=== PATIENT | female | born 1970 | race Caucasian/White ===

== ENCOUNTER 2024-08-29 08:54 | Emergency (ER) | payer MEDICARE, MEDICAID, SELFPAY ==
[2024-08-29 08:56] VITALS: BMI 17.4
[2024-08-29 09:06] VITALS: BP 100/63; PULSE 87; RESP 20; TEMP 36.6; O2SAT 97; BMI 27.1
--- NOTE | 2024-08-29 09:13 | XR_ITS ---
Examination: AP lateral chest 2 views TECHNIQUE: Upright AP lateral chest 2 views Exam date and time: August 29, 2024 0931 hours INDICATIONS: Shortness of breath today. FINDINGS: Normal heart size Lungs are clear. The osseous structures are intact IMPRESSION: No active disease
--- NOTE | 2024-08-29 09:13 | PD.EDRME ---
Rapid Medical Screening Exam RME Arrival date/time: 08/29/24 08:54 54-year-old female with Down syndrome presents to the emergency department today with family member who reports the patient has had changes in her breathing ongoing for the last few months Chief Complaint: General Adult/Misc Complain Time Seen by Provider: 08/29/24 08:58 Vital signs: Vital Signs Temperature 97.9 F 08/29/24 09:06 Pulse Rate 87 08/29/24 09:06 Respiratory Rate 20 08/29/24 09:06 Blood Pressure 100/63 08/29/24 09:06 Pulse Oximetry (%) 97 08/29/24 09:06 Oxygen Delivery Method Room Air 08/29/24 09:06
[2024-08-29 10:08] LABS: Basophils # (Auto) 0.1 Thou/mm3 (0.0-0.2); Basophils % (Auto) 1 % (0-2.5); Eosinophils # (Auto) 0.1 Thou/mm3 (0.0-0.5); Eosinophils % (Auto) 2 % (0-10); Hematocrit 41.7 % (36.0-46.0); Immature Granulocytes % (Auto) 0 % (0-0); Immature Granulocytes Auto 0.01 Thou/mm3 (0.00-0.00); Lymphocytes # (Auto) 1.2 Thou/mm3 (1.0-4.8); Lymphocytes % (Auto) 24 % (10-50); Mean Corpuscular HGB Conc 33.6 g/dl (31.0-37.0); Mean Corpuscular Volume 98 fL (80-100); Monocytes # (Auto) 0.6 Thou/mm3 (0.0-0.8); Monocytes % (Auto) 11 % (0-12); Neutrophils # (Auto) 3.2 Thou/mm3 (1.8-7.7); Neutrophils % (Auto) 62 % (37-80); Nucleated Red Blood Cell % 0 /100 WBC (0); Platelet Count 211 Thou/mm3 (140-440); RDW Standard Deviation 49.4 fL (36.4-46.3); Red Blood Count 4.24 Miln/mm3 (4.00-5.20); White Blood Count 5.2 Thou/mm3 (3.6-11.0)
[2024-08-29 10:35] LABS: Alanine Aminotransferase 13 U/L (10-49); Albumin, Serum 4.1 gm/dL (3.5-5.0); Albumin/Globulin Ratio 1.2 (1.2-2.2); Alkaline Phosphatase 71 U/L (46-116); Anion Gap 8 (7-16); Aspartate Amino Transferase 26 U/L (0-34); BUN/Creatinine Ratio 13 Ratio (12-20); Bilirubin,Total 0.7 mg/dL (0.3-1.2); Blood Urea Nitrogen 12 mg/dL (9-23); Calcium 9.5 mg/dL (8.3-10.6); Calcium (Corrected) 9.5 mg/dL (8.5-10.1); Carbon Dioxide 28.2 mMol/L (20.0-31.0); Chloride 104 mMol/L (98-107); Creatinine (Component) 0.9 mg/dL (0.6-1.3); Estimated Creatinine Clearance 43.5 mL/min (>60); Globulin 3.4 gm/dL (2.3-3.5); Glucose 77 mg/dL (74-106); Lipase 31 U/L (12-53); Osmolality,Calculated 278 (275-295); Potassium 4.6 mMol/L (3.4-5.1); Sodium 140 mMol/L (136-145); Total Protein 7.5 gm/dL (5.7-8.2); Troponin I < 0.002 ng/mL (0.0-0.045); eGFR > 60 See Note
[2024-08-29 14:30] VITALS: BP 129/70; PULSE 64; RESP 18; TEMP 36.7; O2SAT 100
--- NOTE | 2024-08-29 15:36 | EDNOTE_ITS ---
ED General RME/HPI General Chief complaint: General Adult/Misc Complain Stated complaint: 4 months breathing different Time Seen by Provider: 08/29/24 08:58 Arrival date/time: 08/29/24 08:54 RME / HPI RME / HPI narrative: 08/29/24 08:54 54-year-old female with Down syndrome presents to the emergency department today with family member who reports the patient has had changes in her breathing ongoing for the last few months DR. MATA MAIN ED EVALUATION: 54 year old female with past medical history significant for Down syndrome presents to the Emergency Department with complaint of breathing weird this morning; per sister who is rn first assist, the patient has been having breathing changes in the last couple of months. Patient denies any nausea, vomiting, diarrhea, fevers, chills, blood in stools, or any other symptoms at this time. Related Data Allergies Allergy/AdvReac Type Severity Reaction Status Date / Time No Known Allergies Allergy Verified 08/29/24 09:00 Review of Systems Review of Systems ROS Unobtainable: unobtainable due to medical condition (Down syndrome) Past Medical History Past Medical History CARDIAC: Negative Congestive Heart Failure RESPIRATORY: Negative Chronic Obstructive Pulmonary Disease (COPD) GENITOURINARY: Negative Renal Disease ENDOCRINE: Negative Diabetes Mellitus Type 1 or Diabetes Mellitus Type 2 Social History SMOKING STATUS: Never smoker SUBSTANCE USE: does not use ALCOHOL: Never ED Exam Narrative Physical exam: Physical Exam: General: The vital signs were reviewed. Down's facies smiling giggling the patient is non-toxic, in no apparent distress and appears healthy with a patent airway, no respiratory distress and has no apparent circulatory problems. O2 sat reportedly 100% on room air the patient is constantly pulling on the O2 sat thing on her finger and does not want it on. She is minimally verbal which is baseline. Head & Scalp: Normocephalic, atraumatic. Face: Appears normal and is without lesions, deformity. Ears: Left external pinna appears normal. Right external pinna appears normal. Eyes: The sclera is anicteric. No obvious photophobia. The Left and Right Orbit/Lid/Conjunctiva appears normal without swelling, discoloration or injection. Nose: The nose is without deformity, discharge or tenderness; Throat: Appears normal. The mucous membranes are pink and moist without exudates, redness or mass seen. The tongue appears normal. Neck: The neck is supple and no apparent mass or adenopathy. Chest: The chest wall is normal in size and symmetry and has no chest wall tenderness or crepitus. The patient displays normal ventilator effort without retractions, accessory muscle use and has adequate air movement bilaterally with no wheezes and no rales. Cardiovascular: Regular rate and rhythm; No murmurs, rubs, or gallops; Gastrointestinal: The abdomen appears normal. No obvious hernias or mass. The abdomen is soft and benign, non-distended, with no pain, no guarding and no rebound tenderness. Bowel sounds are present and normal sounding. No CVA tenderness. Genitourinary: Back/Spine: Normal inspection. Extremities/Musculoskeletal/lymphatic: The bilateral upper and lower extremities are warm. There is no evidence of arterial insufficiency. There is no evidence of venous insufficiency/edema. The patient spontaneously moves bilateral upper and lower extremities with no pain and no limitation of movement. There is no apparent, injury or trauma. Skin: The skin is warm, dry and intact. No rashes. No petechia. No purpura. No abnormal bruising. The color is appropriate with no cyanosis. Mental status/Psychiatric: Mental status is appropriate down this patient. Minimally verbal. Neurological: The patient is awake, alert, interactive, cordial, cooperative and is acting her usual self minimally verbal but smiles giggles gives good eye contact Moving all her extremities. No distress. Sits up and stands without any difficulty. Course Quality Measures none Orders Category Date Time Status XR chest 2V Stat Exams 08/29/24 09:13 Completed CBC Stat Lab 08/29/24 09:51 Completed Comprehensive Metabolic Panel Stat Lab 08/29/24 09:51 Completed HCG Qualitative,Urine Stat Lab 08/29/24 09:13 Ordered Lipase Stat Lab 08/29/24 09:51 Completed Troponin I Stat Lab 08/29/24 09:51 Completed UA, C/S IF [Urinalysis, C/S if Indicated] Stat Lab 08/29/24 09:13 Ordered Vital Signs Vital signs: Vital Signs Temperature 97.9 F 08/29/24 09:06 Pulse Rate 87 08/29/24 09:06 Respiratory Rate 20 08/29/24 09:06 Blood Pressure 100/63 08/29/24 09:06 Pulse Oximetry (%) 97 08/29/24 09:06 Oxygen Delivery Method Room Air 08/29/24 09:06 [facility] Patient data External records reviewed:: [facility] previous records (Reviewed last ED visit dated 09/13/19, discharged with the following: Rash) Clinical information provided by:: family (sister who is the rn first assist) Social determinants that could affect healthcare access:: none Patient has the following chronic illnesses:: Down syndrome How is presenting disease/condition affected by chronic disease/condition?: u neffected by Evaluation data The following diagnostics were reviewed and interpreted by me:: lab results, radiology exam(s) and EKG tracing(s) Lab and/or radiology exams considered but not ordered:: none Interpretation Summary: See above under MDM narrative. RADIOLOGY Procedure(s): XR chest 2V Accession Number(s): [id number] cc: Bong (TEST BAKER),Cody ROE; Sd Ziegler MD; NO PRIMARY/FAMILY,PHYSICIAN~ Examination: AP lateral chest 2 views TECHNIQUE: Upright AP lateral chest 2 views Exam date and time: August 29, 2024 0931 hours INDICATIONS: Shortness of breath today. FINDINGS: Normal heart size Lungs are clear. The osseous structures are intact IMPRESSION: No active disease Dictated By: Sd Ziegler MD Medications Medications considered but not ordered:: none Medication administrations:: see above if any Consultations Consultation(s) initiated? (list below): No Diagnosis Differential Diagnosis ED Complaint MDM: congenital heart disease, pneumonia, Down syndrome Most likely diagnosis given after review of the tests above:: Down syndrome Respiratory concerns Constipation Admission Indicated Admission indicated?: not indicated Explain why admission is indicated or not indicated:: Patient has no emergent abnormalities on his studies and can be managed on an outpatient basis. Admission Request Was there a request for admission?: No Disposition Plan Disposition Plan: Discharge Discharge Attestation Discharge Attestation: The patient and all family members were given an opportunity to ask questions and understood the discharge instructions. Discharge instructions specifically effects, indications for sooner follow up or return to the emergency department, and the expected course of current diagnosis. Patient condition: Stable Medical Decision Making MDM Narrative MDM Narrative: I, Ling Daniels, am scribing for and in the presence of Dr. Mata. Patient is brought in by her sister who cares for this down adult patient. Patient makes some noises intermittently that she does not know what to do with and worries that there could be something serious going on. But objectively there is no cough her O2 sat is normal her lungs are clear her chest x-ray is clear her labs are unremarkable. Patient is nonstop playful interactive and appears to have no consistent presentation of any illness. After reviewing the labs x-rays and talking with the sister and the clinical exam I see no reason to assume there is any acute illness here and the fact that she sometimes grunts and makes noises seems to be more of a behavioral issue. We discussed things to watch for and when to return with the sister. She took reassurance well. All she is currently about constipation issues and she is got her on sounds like Dulcolax suppositories and but also is going to increase fruits and vegetables in her diet. She can follow-up with her regular doctor knows return if getting worse in any way. Differential Diagnosis Differential Diagnosis: congenital heart disease, pneumonia, Down syndrome Lab Data 08/29/24 09:51 08/29/24 09:51 Labs: Lab Results 08/29/24 Range/Units 09:51 WBC 5.2 (3.6-11.0) Thou/mm3 RBC 4.24 (4.00-5.20) Miln/mm3 Hgb 14.0 (12.0-16.0) g/dL Hct 41.7 (36.0-46.0) % MCV 98 (80-100) fL MCH 33.0 (25.0-35.0) pg MCHC 33.6 (31.0-37.0) g/dl RDW Std Deviation 49.4 H (36.4-46.3) fL Plt Count 211 (140-440) Thou/mm3 Neut % (Auto) 62 (37-80) % Lymph % (Auto) 24 (10-50) % [place] % (Auto) 11 (0-12) % Eos % (Auto) 2 (0-10) % Baso % (Auto) 1 (0-2.5) % Neut # (Auto) 3.2 (1.8-7.7) Thou/mm3 Lymph # (Auto) 1.2 (1.0-4.8) Thou/mm3 [place] # (Auto) 0.6 (0.0-0.8) Thou/mm3 Eos # (Auto) 0.1 (0.0-0.5) Thou/mm3 Baso # (Auto) 0.1 (0.0-0.2) Thou/mm3 Immature Gran # (Auto) 0.01 H (0.00-0.00) Thou/mm3 Absolute Nucleated RBC 0.00 (0.00-0.00) Thou/mm3 Immature Gran % 0 (0-0) % Nucleated RBC % 0 (0) /100 WBC Sodium 140 (136-145) mMol/L Potassium 4.6 (3.4-5.1) mMol/L Chloride 104 (98-107) mMol/L Carbon Dioxide 28.2 (20.0-31.0) mMol/L Anion Gap 8 (7-16) BUN 12 (9-23) mg/dL Creatinine 0.9 (0.6-1.3) mg/dL Estim Creat Clear Calc 43.5 L (>60) mL/min eGFR > 60 (60 - ) See Note BUN/Creatinine Ratio 13 (12-20) Ratio Glucose 77 (74-106) mg/dL Calculated Osmolality 278 (275-295) Calcium 9.5 (8.3-10.6) mg/dL Corrected Calcium 9.5 (8.5-10.1) mg/dL Total Bilirubin 0.7 (0.3-1.2) mg/dL AST 26 (0-34) U/L ALT 13 (10-49) U/L Alkaline Phosphatase 71 (46-116) U/L Troponin I < 0.002 (0.0-0.045) ng/mL Total Protein 7.5 (5.7-8.2) gm/dL Albumin 4.1 (3.5-5.0) gm/dL Globulin 3.4 (2.3-3.5) gm/dL Albumin/Globulin Ratio 1.2 (1.2-2.2) Lipase 31 (12-53) U/L Discharge Plan Plan Patient Disposition: HOME (Self Care) Prescriptions/Referrals Referrals: No Primary/Family,Physician [Primary Care Provider] - In 1 week Problem List Clinical Impression: Down syndrome, Concern about respiratory disease without diagnosis, Constipation Patient/Caregiver Discharge Instructions Additional Instructions: As we discussed that if the patient has persistent respiratory distress or labored breathing please return for reevaluation. Your chest x-ray was normal. Your O2 sats were normal today. Your laboratories show normal white count and hemoglobin's. Your electrolytes and your cardiac enzyme was normal. Continue the bowel program as we discussed and have your doctor follow-up in the next 2 to 3 days. Return if worse or any other concerns. Print Language: Bahamian Stand Alone Forms: [employer]i Award Info., Patient Portal Info Letter
[2024-08-29 16:09] LABS: Collection Type, Urine Clean Catch; Squamous Epithelial Cell,Urine 0 /hpf (0-5)
[2024-08-29 16:14] LABS: Bilirubin,Urine Negative (Negative); Blood,Urine Negative (Negative); Clarity,Urine Clear (Clear/Hazy); Color,Urine Colorless (Lt Yel-Yel); Culture Indicated,Urine Not Indicated; Glucose, Urine Negative (Negative); Ketones,Urine Negative (Negative); Leukocyte Esterase,Urine Negative (Negative); Nitrite,Urine Negative (Negative); PH,Urine 6.5 (5.0-7.0); Protein,Urine Negative (Neg - Trace); RBC,Urine 2 /hpf (0-3); Specific Gravity,Urine 1.004 (1.001-1.035); Urobilinogen,Urine Negative mg/dL (0.0-1.0); WBC,Urine 1 /hpf (0-5)
[2024-08-29 16:19] LABS: HCG Qualitative,Urine Negative
== END 2024-08-29 16:21 | disposition home or self-care (01) ==
PROVIDERS: Nurse Practitioner Primary Care; Emergency Provider Emergency Medicine
DX: R06.02 Shortness of breath (principal); K59.00 Constipation, unspecified; Q90.9 Down syndrome, unspecified
CPT/HCPCS: 36415; 71046; 80053; 81001; 81025; 83690; 84484; 85025; 99283

== ENCOUNTER 2024-10-27 21:47 | Emergency (ER) | payer MEDICARE, MEDICAID, SELFPAY ==
[2024-10-27 21:49] VITALS: BMI 17.2
[2024-10-27 22:40] VITALS: TEMP 37.8
--- NOTE | 2024-10-27 22:41 | PC.NURSE ---
PT is mentally delayed and is not cooperating for vitals. Tried multiple times.
[2024-10-27 23:40] VITALS: BP 137/81; PULSE 102; RESP 20; O2SAT 98
--- NOTE | 2024-10-27 23:44 | EDNOTE_ITS ---
ED General RME/HPI General Chief complaint: General Adult/Misc Complain Stated complaint: SHAKING REALLY BAD Time Seen by Provider: 10/27/24 22:00 Arrival date/time: 10/27/24 21:47 RME / HPI RME / HPI narrative: This section includes all my notes and documentations, including HPI, PE, and ED course. Messi Rowe MD HPI: 54yo female with a history of down syndrome BIB her sister presents to the ED for a chief complaint of shakiness. Patient's sister states the patient started shaking really bad at 2130, about an hour ago. Sister reports about a week history of worsening cough, productive cough, purulent sputum, and dyspnea. No obvious fever. No vomiting. Eating normally. No other complaints. ROS: All negative except as documented in HPI. Physical Exam: General: Alert and oriented. Coughing noted. Fever noted. Eyes: Conjunctivae and lids clear. ENT: No nasal congestion. Pharynx normal. TM normal bilaterally. Neck: Supple. Heart: RRR. Lungs: No respiratory distress. Mildly decreased air movement. Bilateral rhonchi noted. Abdomen: Soft and nontender. Normal bowel sounds. No distension. No rebound or guarding. Back: No CVA tenderness. Skin: Warm and dry. Neuro: Alert and oriented X 3. I reviewed all diagnostic test results. My interpretation of the chest x-ray is increased bronchial markings, official radiology report is pending. UA unremarkable. COVID/influenza/RSV/strep negative. At this point, diagnoses include lower respiratory infection. Treatment here included azithromycin and ibuprofen. Fever resolved. Recommended outpatient treatment. Based on my best medical judgment, made decision no further evaluation or treatment indicated at this time. Sister understands and agrees to the discharge instructions customized and printed, see below. Discharge instructions from Dr. Rowe: --No physical exertion for 3 days to help rest the lungs. ?No smoking or exposure to smoking or pets or dust or cold or humidity. --Zithromax and cefdinir to kill the germs causing the bronchitis. --Tylenol 650 mg alternating with ibuprofen 400 mg every 4 hours today and tomorrow scheduled. Then as needed for fever/pain. --Increase oral fluid, we need extra when we are sick. For good hydration, increase oral fluid and maintain clear urine. If dark or yellow, increase oral fluid. --See a private doctor next week for recheck if not better. --Seek immediate medical care with worsening or with any concerns. Messi Rowe MD Related Data Previous Rx's ?Medication ?Instructions ?Recorded azithromycin 200 mg/5 mL oral 400 mg (10 mL) PO QDAY 3 days #30 10/28/24 suspension (Zithromax) mL cefdinir 250 mg/5 mL oral 250 mg (5 mL) PO BID 3 days #30 mL 10/28/24 suspension Allergies Allergy/AdvReac Type Severity Reaction Status Date / Time No Known Allergies Allergy Verified 08/29/24 09:00 Review of Systems Review of Systems Systems Reviewed: All systems reviewed, normal except as documented ED Exam Narrative Physical exam: As noted in HPI. Course Quality Measures none Orders Category Date Time Status Bedside COVID-19 Antigen Test NOW Care 10/27/24 22:43 Completed Bedside Influenza A&B Antigen Test NOW Care 10/27/24 22:43 Completed XR chest 1V portable Stat Exams 10/27/24 23:55 Taken RSV [Respiratory Syncytial Virus Ag] Stat Lab 10/28/24 00:12 Completed Strep A Rapid Stat Lab 10/28/24 00:12 Completed UA, C/S IF [Urinalysis, C/S if Indicated] Stat Lab 10/28/24 00:45 Completed Azithromycin [Zithromax] Med 10/28/24 02:00 Discontinued 400 mg PO X1 ONE Ibuprofen Susp [Motrin Susp] Med 10/27/24 23:54 Discontinued 400 mg PO X1 ONE Vital Signs Vital signs: Vital Signs Temperature 100.1 F 10/27/24 22:40 Discharge Plan Plan Patient Disposition: HOME (Self Care) Prescriptions/Referrals Prescriptions/Med Rec: New cefdinir 250 mg/5 mL suspension for reconstitution 250 mg PO BID 3 Days Qty: 30 0RF azithromycin [Zithromax] 200 mg/5 mL suspension for reconstitution 400 mg PO QDAY 3 Days Qty: 30 0RF Referrals: No Primary/Family,Physician [Primary Care Provider] - In 1 week Problem List Clinical Impression: Lower respiratory infection Patient/Caregiver Discharge Instructions Discharge Activity: activity as tolerated Education Materials: ED Bronchitis, Antibiotics (Child) Additional Instructions: Discharge instructions from Dr. Rowe: --No physical exertion for 3 days to help rest the lungs. ?No smoking or exposure to smoking or pets or dust or cold or humidity. --Zithromax and cefdinir to kill the germs causing the bronchitis. --Tylenol 650 mg alternating with ibuprofen 400 mg every 4 hours today and tomorrow scheduled. Then as needed for fever/pain. --Increase oral fluid, we need extra when we are sick. For good hydration, increase oral fluid and maintain clear urine. If dark or yellow, increase oral fluid. --See a private doctor next week for recheck if not better. --Seek immediate medical care with worsening or with any concerns. Print Language: Frisian Stand Alone Forms: [employer] Award Info., Patient Portal Info Letter MDM Patient Acuity Low Acuity (complete MDM as needed) Narrative: Scribe Attestation: 10/27/24 - Sukh, Lori Paez am scribing for and in the presence of Dr. Rowe. 54yo female with a history of down syndrome BIB her sister presents to the ED for a chief complaint of shakiness. Patient's sister states the patient started shaking really bad at 2130, about an hour ago. Sister reports about a week history of worsening cough, productive cough, purulent sputum, and dyspnea. No obvious fever. No vomiting. Eating normally. No other complaints. Clinical Information Provided by: family (patient's sister) Medical Records reviewed [facility] (Per chart review, patient has no relevant previous ED visits.) Meds/Rx considered, not ordered None Labs/Rad/Tests considered, not ordered None Chronic Illness/Social Conditions which may negatively complicate care or outcome(s)-explain: Developmentally delayed EKG EKG not done Labs Labs: Interpreted by [facility] Lab(s) Interpretation(s): I reviewed all diagnostic test results. My interpretation of the chest x-ray is increased bronchial markings, official radiology report is pending. UA unremarkable. COVID/influenza/RSV/strep negative. Imaging Imaging interpretation: Interpreted by [facility] Interpretation(s): I reviewed all diagnostic test results. My interpretation of the chest x-ray is increased bronchial markings, official radiology report is pending. UA unremarkable. COVID/influenza/RSV/strep negative. Medication Administration(s) Medication Administration History Discontinued Medications Azithromycin (Azithromycin Susp 200 Mg/5 Ml) 400 mg PO X1 ONE Stop: 10/28/24 02:01 Last Admin: 10/28/24 02:14 Dose: 400 mg Documented By: MALIKA Ibuprofen (Ibuprofen Susp 100 Mg/5 Ml Udc) 400 mg PO X1 ONE Stop: 10/27/24 23:55 Last Admin: 10/28/24 00:14 Dose: 400 mg Documented By: MALIKA Azithromycin, Ibuprofen Diagnosis Differential Diagnosis ED Complaint MDM: COVID, influenza, RSV, strep, bronchitis, pneumonia, UTI
--- NOTE | 2024-10-27 23:55 | XR_ITS ---
Examination: AP chest single view Technique one AP portable upright chest single view Exam date and time: October 28, 2024 0008 hrs. Indications: Fever today. Findings: Early bilateral perihilar right basilar pneumonia Normal heart size Impression: Early right perihilar right basilar pneumonia
[2024-10-28] MEDS: IBUPROFEN SUSP 100 MG/5 ML UDC 400 MG PO (00:14)
[2024-10-28 00:59] LABS: Strep A Rapid Negative (Negative)
[2024-10-28 01:08] LABS: Respiratory Syncytial Virus Ag Negative (Negative)
[2024-10-28 01:32] LABS: Collection Type, Urine Clean Catch
[2024-10-28 01:43] LABS: Bilirubin,Urine Negative (Negative); Blood,Urine Negative (Negative); Clarity,Urine Clear (Clear/Hazy); Color,Urine Lt-Yellow (Lt Yel-Yel); Culture Indicated,Urine Not Indicated; Glucose, Urine Negative (Negative); Hyaline Casts,Urine < 1 /hpf (0-1); Ketones,Urine Negative (Negative); Leukocyte Esterase,Urine Positive (Negative); Nitrite,Urine Negative (Negative); PH,Urine 6.5 (5.0-7.0); Protein,Urine Negative (Neg - Trace); RBC,Urine 1 /hpf (0-3); Specific Gravity,Urine 1.013 (1.001-1.035); Squamous Epithelial Cell,Urine < 1 /hpf (0-5); Urobilinogen,Urine Negative mg/dL (0.0-1.0); WBC,Urine 4 /hpf (0-5)
[2024-10-28 02:14] VITALS: BP 139/87; PULSE 98; RESP 19; TEMP 36.6; O2SAT 98
[2024-10-28] MEDS: AZITHROMYCIN SUSP 200 MG/5 ML 400 MG PO (02:14)
== END 2024-10-28 02:16 | disposition home or self-care (01) ==
PROVIDERS: Emergency Provider Emergency Medicine
DX: J22 Unspecified acute lower respiratory infection (principal); Q90.9 Down syndrome, unspecified
CPT/HCPCS: 71045; 81001; 87400; 87634; 87651; 87811; 99283; A9270